=== PATIENT | male | born 1995 | race Caucasian/White ===

== ENCOUNTER 2021-11-06 22:33 | Emergency (ER) | payer SELFPAY ==
[2021-11-07] MEDS ORDERED: KEFLEX250 MG PO (00:20)
== END 2021-11-07 01:17 | disposition home or self-care (01) ==
LOC: FER 22:33
DX: S61.213A Laceration without foreign body of left middle finger without damage to nail, initial encounter (principal); F17.200 Nicotine dependence, unspecified, uncomplicated; Z23 Encounter for immunization; Z88.1 Allergy status to other antibiotic agents; Y28.8XXA Contact with other sharp object, undetermined intent, initial encounter; Y92.009 Unspecified place in unspecified non-institutional (private) residence as the place of occurrence of the external cause
CPT/HCPCS: 73140; 90471; 90715; 99283